=== PATIENT | female | born 1995 ===

== ENCOUNTER 2016-06-18 12:04 | Emergency (ER) | payer BC, OTHER ==
[2016-06-18] MEDS ORDERED: NS 0.9% 1000 ML* 1,000 ML IV ONE (12:35)
[2016-06-18] MEDS ORDERED: Acetaminophen TAB* 325 MG PO ONE (12:35)
[2016-06-18] MEDS ORDERED: Ondansetron INJ* 2 MG/ML VIAL IV ONE (12:35)
[2016-06-18 13:01] LABS: Hematocrit 39 % (35-47); Hemoglobin 12.9 g/dl (12.0-16.0); Mean Corpuscular HGB Conc 33 g/dl (31-36); Mean Corpuscular Hemoglobin 26 pg (27-31); Mean Corpuscular Volume 79 fL (80-97); Mean Platelet Volume 8 um3 (7.4-10.4); Red Blood Count 4.91 10^6/ul (4.0-5.4); Red Cell Distribution Width 14 % (10.5-15); White Blood Count 7.8 10^3/ul (3.5-10.8)
[2016-06-18 13:16] LABS: BUN/Creatinine Ratio 9.1 (8-20); Calcium 8.8 mg/dL (8.6-10.3); EGFR African American 104.3 (>60); EGFR Non-African American 81.1 (>60); Globulin 3.4 g/dL (2-4); Potassium 3.4 mmol/L (3.5-5.0); Total Bilirubin 0.4 mg/dL (0.2-1.0); Total Protein 7.4 g/dL (6.4-8.9)
[2016-06-18 14:30] VITALS: BP 140/77
--- NOTE | 2016-06-18 20:10 | ED ---
aric Harrison Timothy, scribed for Reid Florence MD on 06/18/16 at 1234 . HPI Febrile Illness - HPI Summary HPI Summary: Anjum Fraga is a 20 yo female presenting to [facility] with vomiting and fever. Pt has influenza, as Dx by [facility] star yesterday, but is appearing because her fever has persisted despite motrin. Her Sx began at 0300 06/16/16, and include vomiting and fever. She states she did not vomit yesterday, but has been vomiting every hour on the hour today. She states she has poor PO intake, and has not used tylenol. She states she is unable to keep motrin down long enough to bring her fever down. She is not in any current pain, and denies any pertinent MHx. - History of Current Complaint Time Seen by Provider: 06/18/16 12:32 Hx Obtained From: Patient Onset/Duration: Started Days Ago, Still Present Timing: Constant Temperature: 100.2 F Initial Severity: Moderate Current Severity: Moderate Pain Intensity: 0 Pain Scale Used: 0-10 Numeric Associated Signs and Symptoms: Vomiting - Allergy/Home Medications Allergies/Adverse Reactions: Allergies Allergy/AdvReac Type Severity Reaction Status Date / Time No Known Allergies Allergy Verified 01/19/13 15:24 PMH/Surg Hx/FS Hx/Imm Hx Endocrine/Hematology History: Denies: Hx Diabetes Cardiovascular History: Denies: Hx Hypertension, Hx Pacemaker/ICD History: Denies: Hx Renal Disease Sensory History: Denies: Hx Hearing Aid Psychiatric History: Denies: Hx Panic Disorder Infectious Disease History: Yes Infectious Disease History: Denies: Traveled Outside the [place] in Last 30 Days - Family History Known Family History: Positive: Hypertension, Diabetes Negative: Cardiac Disease - Social History Substance Use Type: Reports: None Review of Systems Positive: Fever Eyes: Negative ENT: Negative Cardiovascular: Negative Respiratory: Negative Positive: Vomiting Genitourinary: Negative Musculoskeletal: Negative Skin: Negative Neurological: Negative Psychological: Normal All Other Systems Reviewed And Are Negative: Yes Physical Exam Triage Information Reviewed: Yes Vital Signs On Initial Exam: Initial Vitals Temp Pulse Resp BP Pulse Ox 100.2 F 132 16 180/86 99 06/18/16 12:05 06/18/16 12:05 06/18/16 12:05 06/18/16 12:05 06/18/16 12:05 Vital Signs Reviewed: Yes Appearance: Positive: Well-Appearing, No Pain Distress Skin: Positive: Warm - febrile, Skin Color Reflects Adequate Perfusion, Diaphoretic Head/Face: Positive: Normal Head/Face Inspection Eyes: Positive: Normal ENT: Positive: Normal ENT inspection Neck: Positive: Supple, Nontender Respiratory/Lung Sounds: Positive: Clear to Auscultation, Breath Sounds Present , Other - wet cough Cardiovascular: Positive: RRR Abdomen Description: Positive: Nontender, Soft Bowel Sounds: Positive: Present Musculoskeletal: Positive: Normal Neurological: Positive: Normal Psychiatric: Positive: Normal, Affect/Mood Appropriate Diagnostics - Vital Signs Vital Signs Temp Pulse Resp BP Pulse Ox 06/18/16 12:05 100.2 F 132 16 180/86 99 - Laboratory Lab Results: Lab Results 06/18/16 06/18/16 06/18/16 Range/Units 12:35 12:35 12:35 WBC 7.8 (3.5-10.8) 10^3/ul RBC 4.91 (4.0-5.4) 10^6/ul Hgb 12.9 (12.0-16.0) g/dl Hct 39 (35-47) % MCV 79 L (80-97) fL MCH 26 L (27-31) pg MCHC 33 (31-36) g/dl RDW 14 (10.5-15) % Plt Count 254 (150-450) 10^3/ul MPV 8 (7.4-10.4) um3 Neut % (Auto) 74.9 (38-83) % Lymph % (Auto) 12.8 L (25-47) % Mora % (Auto) 12.0 H (1-9) % Eos % (Auto) 0 (0-6) % Baso % (Auto) 0.3 (0-2) % Absolute Neuts (auto) 5.8 (1.5-7.7) 10^3/ul Absolute Lymphs (auto) 1.0 (1.0-4.8) 10^3/ul Absolute Monos (auto) 0.9 H (0-0.8) 10^3/ul Absolute Eos (auto) 0 (0-0.6) 10^3/ul Absolute Basos (auto) 0 (0-0.2) 10^3/ul Absolute Nucleated RBC 0.01 10^3/ul Nucleated RBC % 0.1 Sodium 128 L (133-145) mmol/L Potassium 3.4 L (3.5-5.0) mmol/L Chloride 98 L (101-111) mmol/L Carbon Dioxide 19 L (22-32) mmol/L Anion Gap 11 (2-11) mmol/L BUN 8 (6-24) mg/dL Creatinine 0.88 (0.51-0.95) mg/dL Est GFR ( Amer) 104.3 (>60) Est GFR (Non-Af Amer) 81.1 (>60) BUN/Creatinine Ratio 9.1 (8-20) Glucose 99 (70-100) mg/dL Lactic Acid 0.6 (0.5-2.0) mmol/L Calcium 8.8 (8.6-10.3) mg/dL Total Bilirubin 0.40 (0.2-1.0) mg/dL AST 17 (13-39) U/L ALT 14 (7-52) U/L Alkaline Phosphatase 73 (34-104) U/L Total Protein 7.4 (6.4-8.9) g/dL Albumin 4.0 (3.2-5.2) g/dL Globulin 3.4 (2-4) g/dL Albumin/Globulin Ratio 1.2 (1-3) Result Diagrams: 06/18/16 12:35 06/18/16 12:35 Lab Statement: Any lab studies that have been ordered have been reviewed, and results considered in the medical decision making process. Re-Evaluation - Re-Evaluation First Eval Re-Evaluation Time: 14:04 Change: Improved Comment: Pt condition is improved Course/Dx - Course Assessment/Plan: Anjum Fraga is a 20 yo female presenting to [facility] with fever and vomiting since 0300 06/16/16, unable to keep motrin down to bring down her fever. After clinical examination and review of her lab work, she will be discharged home with influenza and instructions to continue a regimen of ibuporfen and tylenol to treat her fever. She felt a lot better after hydration. - Diagnoses Provider Diagnoses: Influenza Discharge - Discharge Plan Condition: Stable Disposition: HOME Prescriptions: Ondansetron ODT TAB* [Zofran Odt TAB*] 4 mg PO Q6H PRN #20 tab.odt PRN Reason: Nausea/Vomiting Patient Education Materials: Influenza (ED) Referrals: Non Staff,Doctor [Primary Care Provider] - If Needed Additional Instructions: Please continue using ibuprofen and tylenol to treat your fever. Follow up with your primary care physician as needed. Return to the emergency department with any new or recurring symptoms. The documentation as recorded by the aric zamudio Timothy accurately reflects the service I personally performed and the decisions made by me, Reid Florence MD.
== END 2016-06-18 14:20 | disposition home or self-care (01) ==
LOC: ED 12:04
DX: J11.1 Influenza due to unidentified influenza virus with other respiratory manifestations (principal); R50.9 Fever, unspecified; R11.10 Vomiting, unspecified
CPT/HCPCS: 36415; 80053; 83605; 85025; 96365; 99283; A9270-GY; J2405